=== PATIENT | female | born 1990 ===

== ENCOUNTER 2024-12-12 10:04 | Outpatient (REF) | payer BC, SELFPAY ==
[2024-12-12 11:51] LABS: Influenza A PCR NEGATIVE (Negative); Influenza B PCR NEGATIVE (Negative); Resp Syncy Virus RNA Qual PCR NEGATIVE (Negative); SARS COV2 PCR INHOUSE NEGATIVE (Negative)
--- OUTSIDE RECORDS SUMMARY | 2024-12-12 13:18 | XMS_ITS | Clinical Summary ---
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
== END 2024-12-12 10:05 | disposition home or self-care (01) ==
LOC: HO.LAB 10:04
DX: J45.909 Unspecified asthma, uncomplicated (principal); F90.9 Attention-deficit hyperactivity disorder, unspecified type; R50.9 Fever, unspecified; F41.9 Anxiety disorder, unspecified; R09.89 Other specified symptoms and signs involving the circulatory and respiratory systems; R05.9 Cough, unspecified; M25.50 Pain in unspecified joint; F17.200 Nicotine dependence, unspecified, uncomplicated; Z71.6 Tobacco abuse counseling
CPT/HCPCS: 0241U; 96127

== ENCOUNTER 2024-12-12 10:04 | Outpatient (AMB) | payer BC, SELFPAY ==
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
[2024-12-12 10:10] VITALS: BP 110/72; TEMP 36.5; BMI 28.9
--- OUTSIDE RECORDS SUMMARY | 2024-12-12 11:37 | XMS_ITS | Clinical Summary ---
Author Organization [facility] Address [address] [place] [address] Phone Care Team Providers Care Manager Financial Systems Name Role Phone Unavailable Primary Care Provider Unavailabl e Immunizations Immunization Administration Dates Next Due DTP 05/13/1994, 1,03/12/1990,01/24,1989 HPV, Quadrivalent 01/17/2008,11/23/2007 Hep A 09/18/1998 Hep B, ped/adol 11/27/2001,05/21/1999,04/01/1998 Hib (PRP-T) 12/10/1994,12/10/1990 MMR 12/10/1994,12/10/1990 Meningococcal Conj (Menactra) MCV4P 04/05/2006 OPV 05/13/1994, 1,01/24/1990,11/24 Td (adult) (MBL), 2 Lf tetan us toxoid, PF, adsorbed 11/27/2001 Tdap 01/17/2008 Varicella 01/17/2008,02/26/2002 Family History Relation Name Status Comments Brother 1 Alive Brother: allerg ies, Obesity, allergies Brother 2 Alive Brother: allerg ies, Obesity, allergies Brother 3 Brother: allerg ies, Obesity, allergies Father Alive Father: Alive a nd well Mother Mother: Fibromy algia, Allergies, Asthma Other No family histo ry of Elevated cholesterol, No family history of Obesity, No family history of Deafness, No family history of Seizure disorder, No family history of Diabetes mellitus, No family history of Asthma, No family history of Sudden /[place] under age 55, No family history of Strabismus/amblyopia, No family history of Developmental dislocation of hip, No family history of ADD/ADHD, No family history of Autism, No family history of Migraines Sister Alive Sister: Alive a nd well Social History Tobacco Use Types Packs/Day Years Used Date Smoking Tobacco: Never Assessed Comments Unknown Sex and Gender Information Value Date Recorded Sex Assigned at Not on file Legal Sex Female 4:46 PM EDT Gender Identity Not on file Sexual Orientation Not on file Plan of Treatment Health Maintenance Due Date Last Done Comments Hepatitis A Vaccines (2 of 2 - 2-dose series) 03/18/1999 09/18/1998 HPV Vaccines (3 - 3-dose series) 05/25/2008 01/17/2008, 11/23/2007 DTaP,Tdap,and Td Vaccines (7 - Td or Tdap) 01/16/2018 01/17/2008, 11/27/2001, 05/13/1994, Additional history exists Influenza Vaccines (#1) 2024 COVID-19 Vaccine ( season) 2024 IPV Vaccines Completed 05/13/1994, 02/11, 01/24/1990, Additional history exists HIB Vaccines Completed 12/10/1994, 12/10/1990 MMR Vaccines Completed 12/10/1994, 12/10/1990 Hepatitis B Vaccines Completed 11/27/2001, 05/21/1999, 04/01/1998 Meningococcal Vaccine Completed 04/05/2006 Varicella Vaccines Completed 01/17/2008, 02/26/2002 Men B Vaccine Aged Out No longer elig ible based on patient's age to complete this topic Pneumococcal Vaccine Aged Out No long er eligible based on patient's age to complete this topic
== END 2024-12-12 10:51 | disposition home or self-care (01) ==
LOC: HO.HMCH 10:04
DX: J45.909 Unspecified asthma, uncomplicated (principal); F90.9 Attention-deficit hyperactivity disorder, unspecified type; F41.9 Anxiety disorder, unspecified; R05.9 Cough, unspecified; M25.50 Pain in unspecified joint; F17.200 Nicotine dependence, unspecified, uncomplicated